=== PATIENT | male | born 1980 | race Caucasian/White ===

== ENCOUNTER 2020-07-24 19:40 | Inpatient (IN) | payer OTHER ==
[~2020-07-24] VITALS: Ht 172.7 cm; Wt 90.7 kg
[2020-07-24] MEDS ORDERED: PAXIL20 MG PO (20:00)
[2020-07-24] MEDS ORDERED: TENORMIN50 M1 PO (20:00)
[2020-07-30] MEDS ORDERED: TAMS0.4C PO (11:47)
[2020-07-30] MEDS ORDERED: ULTRACET PO (11:48)
== END 2020-07-30 13:16 | disposition home or self-care (01) | DRG 419 ==
LOC: ER 19:40 → SURG 07-25 07:51 → SEC-K 07-25 07:51 → SURG 07-25 21:33
PROVIDERS: ADMIT Surgery; ATTEND Surgery
PROC: B24BZZZ Ultrasonography of Heart with Aorta (ICD-10-PCS; 2020-07-25)
PROC: 0FJB8ZZ Inspection of Hepatobiliary Duct, Via Natural or Artificial Opening Endoscopic (ICD-10-PCS; 2020-07-25)
PROC: 0FJD8ZZ Inspection of Pancreatic Duct, Via Natural or Artificial Opening Endoscopic (ICD-10-PCS; 2020-07-25)
PROC: BF13YZZ Fluoroscopy of Gallbladder and Bile Ducts using Other Contrast (ICD-10-PCS; 2020-07-28)
PROC: 0FT44ZZ Resection of Gallbladder, Percutaneous Endoscopic Approach (ICD-10-PCS; principal; 2020-07-28 12:00)
DX: K80.10 Calculus of gallbladder with chronic cholecystitis without obstruction (principal); E66.9 Obesity, unspecified; Z68.30 Body mass index [BMI] 30.0-30.9, adult; I11.9 Hypertensive heart disease without heart failure; F41.9 Anxiety disorder, unspecified; Z20.828 Contact with and (suspected) exposure to other viral communicable diseases; E11.65 Type 2 diabetes mellitus with hyperglycemia; R33.8 Other retention of urine; E80.4 Gilbert syndrome